=== PATIENT | female | born 1950 | race Caucasian/White ===

== ENCOUNTER 2017-02-08 20:28 | Emergency (ER) | payer MEDICARE ==
--- NOTE | ~2017-02-08 | CR72 ---
[facility] A Service of [facility] / [facility] RADIOLOGY TEXT RESULTS PATIENT: KINGSLEY CARDONA LOCATION: [facility] : 54 UNIT #: [id number] AGE: [address]: Dusty Polk MD SEX: F ORDER DR: [id number] [facility] [address] [place], [place] [address] [id number] E MR#: [id number] Acc #: [id number] NAME: KINGSLEY CARDONA : 1950 SEX: F STUDY DATE/TIME: 02/08/2017 22:23 UNIT: [facility] ROOM: STUDY DESCRIPTION: CR Chest Single View Portable Attending Physician: Kiersten Polk M.D. Ordering Physician: Ed Doctor [id number] [facility] Primary Care Physician: Soraida Crawford M.D. MEDICAL IMAGING REPORT This report is preliminary unless electronic signature is present EXAM Portable chest 02/08/2017 HISTORY Shortness of air and congestion for 1 week. COMPARISON STUDIES Comparison chest 07/25/2016 FINDINGS Frontal chest demonstrates focal infiltrate in the right lower lobe, concerning for pneumonia. Left lung clear. No large pleural effusion. No pneumothorax. Heart size and mediastinum are normal. Pulmonary vasculature normal. IMPRESSION Focal infiltrate in the right lower lobe, concerning for pneumonia. Recommend follow up to resolution Dictated by... Sterling Mcbride M.D. THIS IS AN ELECTRONICALLY VERIFIED REPORT Sterling Mcbride M.D. at 02/08/2017 11:10 PM MYLES/anitha TD: 02/08/2017 23:08 JOB #: [id number] MEDICAL IMAGING REPORT Page 1 of 1 COPY
--- NOTE | ~2017-02-08 | EKG ---
PATIENT: KINGSLEY CARDONA UNIT #: [id number] Ventricular Rate: 70 BPM Atrial Rate: 70 BPM P-R Interval: 128 ms QRS Duration: 82 ms Q-T Interval: 406 ms QTC Calculation(Bezet): 438 ms P [place]: 29 degrees Calculated R [place]: 14 degrees Calculated T [place]: 19 degrees Diagnosis Line: Normal sinus rhythm Diagnosis Line: Normal ECG Diagnosis Line: No previous ECGs available Diagnosis Line: Confirmed by KAYLAN BROWN MD ([id number]) on 02/09/2017 Diagnosis Line: 10:04:04 AM INTERPRETING MD: STEPHANIE BONNER
[~2017-02-08 20:28] MED LIST: ANTI-DIARRHEAL PO; ASPIRIN PO; ATENOLOL PO; AZAR; AZOR PO; BUSPAR PO; CELEXA PO; CERTAGEN PO; CYMBALTA PO; DARVOCET-N 1001 TAB PO; DARVON65 M1 PO; DURAGESIC75 MCG EXT; FERROUS SULFATE PO; FIBER LAXATIVE0.52 G PO; MAG-OXIDE400 MG PO; MEDROL PO; MELATONIN3 MG PO; METOPROLOL SUCC50 MG PO; MUCINEX DM1 TAB.SR . PO; PAXIL PO; PAXIL40 MG PO; PERCOCET5/325 PO; PROTONIX PO; SOD BICARBONATE PO; TOPROL XL50 MG PO; TORADOL10 MG PO; VOLTAREN75 MG PO; ZITHROMAX PO; ZOCOR PO; ZOLOFT PO
[2017-02-08 22:11] LABS: POC - CKMB 1.8 ng/mL (0.0-7.9); POC - TROPONIN <0.05 ng/mL (<=0.05)
[2017-02-08 22:12] LABS: BASOPHIL# 0.1 X10e3 (0-0.3); BASOPHIL% 1.3 % (0-2.5); DIFF IND NO; EOSINOPHIL# 0.2 X10e3 (0-0.7); EOSINOPHIL% 2.7 % (0.0-7.0); HEMATOCRIT 41.8 % (35.0-45.0); LYMPHOCYTE# 2.7 X10e3 (1.0-3.5); LYMPHOCYTE% 34.4 % (17.0-45.0); MEAN CELL VOLUME 92.5 FL (83-96); MEAN CORPUSCULAR HGB CONC 33.4 g/dL (30-36); MEAN PLATELET VOLUME 11.6 FL (6.5-11.5); MONOCYTE# 0.4 X10e3 (0-1.0); MONOCYTE% 5.6 % (3.0-12.0); NEUTROPHIL# 4.4 X10e3 (1.5-7.1); PLATELET COUNT 168 X10e3 (140-420); RED BLOOD COUNT 4.52 X10e (3.90-5.30); RED CELL DISTRIBUTION WIDTH 13.4 % (11.0-15.5); WHITE BLOOD COUNT 7.8 X10e3 (4.0-10.5)
[2017-02-08 22:22] LABS: PARTIAL THROMBOPLASTIN TIME 24.7 SECONDS (23.5-31.3)
[2017-02-08 22:27] LABS: BUN/CREATININE RATIO 16.66; CALCIUM SERUM 9.1 mg/dL (8.4-10.2); CREATININE SERUM 0.9 mg/dL (0.6-1.4); GLOM FILT RATE Estimated 67.6 mL/min (>60); POTASSIUM 4.1 mmol/L (3.5-5.1)
== END 2017-02-08 23:34 | disposition home or self-care (01) ==
LOC: CED 20:28
PROVIDERS: Emergency Medicine
DX: J18.1 Lobar pneumonia, unspecified organism (principal); E78.5 Hyperlipidemia, unspecified; I10 Essential (primary) hypertension; K21.9 Gastro-esophageal reflux disease without esophagitis; F17.210 Nicotine dependence, cigarettes, uncomplicated; Z88.5 Allergy status to narcotic agent; Z88.8 Allergy status to other drugs, medicaments and biological substances
CPT/HCPCS: 36415; 71010; 80048; 82553; 83880; 84484; 85025; 85379; 85610; 85730; 93005; 94640; 99284

== ENCOUNTER 2017-05-09 19:16 | Emergency (ER) | payer MEDICARE ==
[~2017-05-09] VITALS: Ht 177.8 cm; Wt 60.8 kg
--- NOTE | ~2017-05-09 | EKG ---
PATIENT: KINGSLEY CARDONA UNIT #: [id number] Ventricular Rate: 165 BPM Atrial Rate: 150 BPM QRS Duration: 98 ms Q-T Interval: 276 ms QTC Calculation(Bezet): 457 ms Calculated R [place]: -19 degrees Calculated T [place]: 80 degrees Diagnosis Line: Supraventricular tachycardia Diagnosis Line: Left ventricular hypertrophy with repolarization Diagnosis Line: abnormality Diagnosis Line: Abnormal ECG Diagnosis Line: When compared with ECG of 08-FEB-2017 22:12, Diagnosis Line: Vent. rate has increased BY 95 BPM Diagnosis Line: ST now depressed in Lateral leads Diagnosis Line: Confirmed by LETY DIAZ MD ([id number]) on Diagnosis Line: 05/10/2017 12:39:03 PM INTERPRETING MD: JOE BONNER
--- NOTE | ~2017-05-09 | EKG ---
PATIENT: KINGSLEY CARDONA UNIT #: [id number] Ventricular Rate: 78 BPM Atrial Rate: 78 BPM P-R Interval: 128 ms QRS Duration: 78 ms Q-T Interval: 364 ms QTC Calculation(Bezet): 414 ms P [place]: 48 degrees Calculated R [place]: -3 degrees Calculated T [place]: 23 degrees Diagnosis Line: Normal sinus rhythm Diagnosis Line: Minimal voltage criteria for LVH, may be normal Diagnosis Line: variant Diagnosis Line: Borderline ECG Diagnosis Line: When compared with ECG of 09-MAY-2017 19:17, Diagnosis Line: (unconfirmed) Diagnosis Line: Vent. rate has decreased BY 87 BPM Diagnosis Line: QRS duration has decreased Diagnosis Line: ST no longer depressed in Lateral leads Diagnosis Line: Confirmed by LETY DIAZ MD ([id number]) on Diagnosis Line: 05/10/2017 12:39:10 PM INTERPRETING MD: JOE BONNER
[2017-05-09] MEDS ORDERED: PRILOSEC PO (19:23)
[2017-05-09] MEDS ORDERED: CHANTIX (19:23)
[2017-05-09] MEDS ORDERED: NEURONTIN PO (19:23)
[2017-05-09] MEDS ORDERED: TOPROL XL PO (19:23)
[2017-05-09] MEDS ORDERED: LIPITOR PO (19:23)
[2017-05-09 19:47] LABS: BASOPHIL# 0.1 X10e3 (0-0.3); BASOPHIL% 1.3 % (0-2.5); EOSINOPHIL# 0.2 X10e3 (0-0.7); EOSINOPHIL% 3.1 % (0.0-7.0); HEMOGLOBIN 15.2 gm/dL (12.0-16.0); LYMPHOCYTE# 3.1 X10e3 (1.0-3.5); LYMPHOCYTE% 38.9 % (17.0-45.0); MEAN CELL VOLUME 93.4 FL (83-96); MEAN CORPUSCULAR HEMOGLOBIN 32.2 PG (28-34); MEAN CORPUSCULAR HGB CONC 34.5 g/dL (30-36); MEAN PLATELET VOLUME 12.2 FL (6.5-11.5); MONOCYTE# 0.4 X10e3 (0-1.0); MONOCYTE% 5.5 % (3.0-12.0); NEUTROPHIL% 51.2 % (40-75); PLATELET COUNT 174 X10e3 (140-420); RED BLOOD COUNT 4.71 X10e (3.90-5.30); RED CELL DISTRIBUTION WIDTH 12.4 % (11.0-15.5); WHITE BLOOD COUNT 7.9 X10e3 (4.0-10.5)
[2017-05-09 19:50] LABS: CALCIUM SERUM 9.7 mg/dL (8.4-10.2); DIFF IND NO; GLOM FILT RATE Estimated 59.5 mL/min (>60); POTASSIUM 4.3 mmol/L (3.5-5.1)
[2017-05-11 14:16] LABS: POC - CKMB 1.4 ng/mL (0.0-7.9)
[2017-05-11 14:17] LABS: POC - TROPONIN <0.05 ng/mL (<=0.05)
== END 2017-05-09 20:33 | disposition home or self-care (01) ==
LOC: SED 19:16
PROVIDERS: Emergency Medicine
DX: I47.1 Supraventricular tachycardia (principal); I10 Essential (primary) hypertension; E78.5 Hyperlipidemia, unspecified; F17.200 Nicotine dependence, unspecified, uncomplicated; Z88.8 Allergy status to other drugs, medicaments and biological substances
CPT/HCPCS: 36415; 80048; 82553; 84484; 85025; 93005; 96361; 96374; 99291; J0153